=== PATIENT | female | born 1970 | race Caucasian/White ===

== ENCOUNTER 2021-12-26 10:33 | Outpatient (CLI) | payer BC | END 2021-12-26 10:34 | disposition home or self-care (01) | LOC: CSHULT 10:33 | PROVIDERS: ATTEND Otolaryngology Plastic Surgery within the Head & Neck | DX: E04.9 Nontoxic goiter, unspecified (principal); E04.2 Nontoxic multinodular goiter | CPT/HCPCS: 76536 ==

== ENCOUNTER 2023-08-22 09:10 | Outpatient (CLI) | payer BC ==
[2023-08-22 11:23] LABS: Hematocrit 41.8 % (34.9-44.5)
[2023-08-22 11:57] LABS: BHCG - Serum Negative (NEGATIVE); Pregs Control Background? CLEAR/WHITE (CLR/WHITE); Pregs Control Bar Appear? YES (CONTROL BAR)
== END 2023-08-22 09:11 | disposition home or self-care (01) ==
LOC: CSHLAB 09:10
PROVIDERS: ATTEND Otolaryngology Otolaryngic Allergy
DX: Z01.818 Encounter for other preprocedural examination (principal)
CPT/HCPCS: 84703; 85014; 93005; 93010

== ENCOUNTER 2023-08-26 05:36 | Observation (INO) | payer BC ==
[2023-08-22 10:05] VITALS: BMI 42.5
[2023-08-26] MEDS ORDERED: Lidocaine 1% w/Epinephrine 1:100K 20 ML VIAL ONE (06:19)
[2023-08-26] MEDS ORDERED: CEFAZOLIN 1 GM VIAL ONE (06:19)
[2023-08-26] MEDS ORDERED: Rocuronium Bromide 10 MG/ML (10ML VIAL) ONE (06:23)
[2023-08-26] MEDS ORDERED: Ondansetron PF 4 MG/2 ML Vial ONE (06:23)
[2023-08-26] MEDS ORDERED: Lidocaine 1% PF 5 ML VIAL ONE (06:23)
[2023-08-26] MEDS ORDERED: Dexamethasone 20 MG/5 ML VIAL ONE (06:23)
[2023-08-26] MEDS ORDERED: Midazolam HCl 2 mg/2 ml Vial ONE (06:24)
[2023-08-26] MEDS ORDERED: Fentanyl 250 MCG/5 ML VIAL ONE (06:24)
[2023-08-26] MEDS ORDERED: PHENYLEPHRINE-NS 100 MCG/ML 10 ML SYRINGE ONE (06:24)
[2023-08-26] MEDS ORDERED: PROPOFOL 20 ML ONE (06:24)
[2023-08-26] MEDS ORDERED: Dexmedetomidine 200 MCG/2 ML VIAL ONE (06:27)
[2023-08-26] MEDS ORDERED: Sevoflurane 250 ML INH ANEST BOTTLE ONE (06:28)
[2023-08-26] MEDS ORDERED: Lidocaine 4% Topical Sol 50 ML BOT ONE (06:28)
[2023-08-26] MEDS ORDERED: CEFAZOLIN 2 GM VIAL ONE (06:51)
[2023-08-26] MEDS ORDERED: ePHEDrine Sulfate 50 MG/10 ML VIAL ONE (07:36)
[2023-08-26] MEDS ORDERED: Ondansetron PF 4 MG/2 ML Vial IVP PRN (08:35)
[2023-08-26] MEDS ORDERED: Ondansetron ODT 4 MG TAB PO PRN (08:35)
[2023-08-26] MEDS ORDERED: Acetaminophen 325 MG TAB PO PRN (08:35)
[2023-08-26] MEDS ORDERED: Acetaminophen/Codeine 30-300mg Tablet PO PRN (08:38)
[2023-08-26] MEDS ORDERED: fentaNYL 50 mcg/mL 1 mL Vial ONE (09:19)
[2023-08-26] MEDS: Acetaminophen/Codeine 30-300mg Tablet PO PRN ×2 (10:52→18:36)
[2023-08-26] MEDS ORDERED: Rosuvastatin 10 MG TAB PO SCH ×2 (11:00→21:00)
[2023-08-26] MEDS ORDERED: Hydrochlorothiazide 25 MG TAB PO SCH ×2 (11:00→13:30)
[2023-08-26] MEDS ORDERED: Lisinopril 10 MG TAB PO SCH ×2 (11:00→14:00)
[2023-08-26] MEDS: Calcium Carbonate 500 MG ChewTAB PO SCH ×3 (11:08→21:07)
[2023-08-26 12:13] LABS: Calcium 9.3 mg/dL (7.8-10.44)
[2023-08-27 05:11] LABS: Calcium 9.3 mg/dL (7.8-10.44)
[2023-08-27] MEDS ORDERED: Levothyroxine Sodium 100 MCG TAB PO SCH (06:00)
[2023-08-27] MEDS: Calcium Carbonate 500 MG ChewTAB PO SCH (08:35)
[2023-08-27 08:45] VITALS: BP 107/59; TEMP 98.1
[2023-08-27] MEDS ORDERED: Rosuvastatin 10 MG TAB PO SCH (09:00)
[2023-08-27] MEDS ORDERED: Hydrochlorothiazide 25 MG TAB PO SCH (09:00)
[2023-08-27] MEDS ORDERED: Lisinopril 10 MG TAB PO SCH (09:00)
== END 2023-08-27 11:23 | disposition home or self-care (01) ==
LOC: CSHSDC 05:36 → CSHTELE 08:33
PROVIDERS: ADMIT Otolaryngology Otolaryngic Allergy; ATTEND Otolaryngology Otolaryngic Allergy
PROC: 0GTG0ZZ Resection of Left Thyroid Gland Lobe, Open Approach (ICD-10-PCS; principal; 2023-08-26)
PROC: 0GTH0ZZ Resection of Right Thyroid Gland Lobe, Open Approach (ICD-10-PCS; 2023-08-26)
DX: E01.0 Iodine-deficiency related diffuse (endemic) goiter (principal); E06.3 Autoimmune thyroiditis; L29.9 Pruritus, unspecified; J45.909 Unspecified asthma, uncomplicated; I10 Essential (primary) hypertension; E66.9 Obesity, unspecified; Z68.42 Body mass index [BMI] 45.0-49.9, adult; Z79.52 Long term (current) use of systemic steroids; Z79.899 Other long term (current) drug therapy; Z90.89 Acquired absence of other organs
CPT/HCPCS: 82310; 83970; 88305; 88307; 88331; 94760; J0690; J1100; J2250; J2405; J2704; J3010